=== PATIENT | female | born 1990 | race Caucasian/White ===

== ENCOUNTER 2023-04-15 17:20 | Emergency (ER) | payer OTHER ==
[~2023-04-15] VITALS: Ht 170.2 cm; Wt 67.2 kg
[2023-04-15 18:47] VITALS: BP 115/79; PULSE 104; RESP 18; TEMP 98; O2SAT 100
[2023-04-15] MEDS ORDERED: KETOROLAC TROMETH 30 MG/ML 1ML VIAL IM ONE (19:15)
[2023-04-15] MEDS ORDERED: IBUP1TAB5 PO (20:07)
== END 2023-04-15 20:21 | disposition home or self-care (01) ==
LOC: ER 17:20
DX: M54.50 Low back pain, unspecified (principal); N20.0 Calculus of kidney; J45.909 Unspecified asthma, uncomplicated; R42 Dizziness and giddiness
CPT/HCPCS: 72131; 72170; 96372; 99285; J1885

== ENCOUNTER 2023-05-21 10:35 | Emergency (ER) | payer OTHER ==
[~2023-05-21] VITALS: Ht 170.2 cm; Wt 65.6 kg
[~2023-05-21 10:35] MED LIST: IBUP1TAB5 PO
[2023-05-21 11:23] VITALS: BP 112/71; PULSE 125; TEMP 97.8
[2023-05-21] MEDS: methylPREDNISolone SOD SUCC 125 MG/2 ML VL IM ONE (11:40)
[2023-05-21] MEDS: IPRATROPIUM BROM 0.5 MG/2.5ML INH SOL NEB ONE (12:33)
[2023-05-21] MEDS: ALBUTEROL SULF 2.5 MG/0.5ML(0.5%) NEB SOLN NEB ONE (12:33)
[2023-05-21 12:38] VITALS: RESP 18; O2SAT 94
[2023-05-21] MEDS ORDERED: ALB5IS NEB (12:56)
[2023-05-21] MEDS ORDERED: PRED20TA2 PO (12:56)
== END 2023-05-21 13:03 | disposition home or self-care (01) ==
LOC: ER 10:35
DX: J45.901 Unspecified asthma with (acute) exacerbation (principal)
CPT/HCPCS: 94640; 96372; 99283; J2930; J7644